=== PATIENT | male | born 2000 | race Caucasian/White ===

== ENCOUNTER 2021-11-07 22:05 | Emergency (ER) | payer OTHER ==
[~2021-11-07] VITALS: Ht 182.9 cm; Wt 72.7 kg
[2021-11-07 22:09] VITALS: TEMP 97.9
[2021-11-07 22:57] VITALS: BP 119/80; PULSE 79
== END 2021-11-07 22:51 | disposition home or self-care (01) ==
LOC: COL.ER 22:05
DX: S61.213A Laceration without foreign body of left middle finger without damage to nail, initial encounter (principal); W23.1XXA Caught, crushed, jammed, or pinched between stationary objects, initial encounter

== ENCOUNTER → 2021-11-21 | Outpatient (CLI) | payer OTHER ==
[2021-11-21 22:07] VITALS: BP 117/75; PULSE 86; TEMP 98.2
== END ==
LOC: COL.ER 21:49
DX: Z48.02 Encounter for removal of sutures (principal)